=== PATIENT | female | born 1965 | race Caucasian/White ===

== ENCOUNTER 2017-06-11 10:17 | Emergency (ER) | payer SELFPAY ==
[~2017-06-11] VITALS: Ht 170.2 cm; Wt 78.0 kg
[~2017-06-11 10:17] MED LIST: AUGM875T PO
--- NOTE | 2017-06-11 10:43 | PD ---
HPI Chief Complaint: Skin Problem Time Seen by Provider: 10:28 Travel History International Travel<30 days: No Contact w/Intl Traveler<30days: No Traveled to known affect area: No History of Present Illness HPI The patient is a 51-year-old female who presents to the emergency department for pruritic rash. The patient states her rash started in December after she went through a divorce, quit her job, and started smoking once again. The patient has been seen in the emergency department several times per her report, initially in [place]. The patient was initially diagnosed with neurodermatitis. The patient has come back to the emergency department twice where she has been placed on Bactrim, Keflex, and steroids for her rash. The patient states the steroids irritated her stomach, however, did not improve her rash. The rash seems to wax and wane, is present on the hands, the elbows, the scalp, and the lower extremities. The rash is somewhat pruritic. The patient has finished her Bactrim and Keflex without any improvement of her symptoms. The patient was on the 17th 10 day course of steroids 3 weeks ago which did not improve her symptoms. 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 The patient does admit to being under a great of stress and states that her rash did start after her divorce and loss of her job in December. She denies any oropharyngeal involvement, chest pain, shortness breath, or wheezing. [facility] Social History Alcohol Use: No Tobacco Use: No Substance Use: No Allergies-Medications (Allergen,Severity, Reaction): Coded Allergies: No Known Allergies (Unverified , 09/01/15) Reported Meds & Prescriptions Reported Meds & Active Scripts Active Augmentin 875 mg Tab (Amoxicillin & Pot Clavulanate 875 mg Tab) 875 Mg Tab 875 Mg PO Q12 10 Days Review of Systems Except as stated in HPI: all other systems reviewed are Neg HENT: No: Sore Throat Cardiovascular: No: Chest Pain or Discomfort Respiratory: No: Wheezing Gastrointestinal: No: Nausea, Vomiting Skin: Positive Rash, Positive Itching, Positive Dryness Physical Exam Narrative GENERAL: Awake, alert, 51-year-old female who appears her stated age and is in no acute respiratory distress. SKIN: Focused skin assessment warm/dry. Patient has a maculopapular rash on the lower extremities bilaterally. She also has dry skin over the elbows bilaterals as well as a mild excoriation in the webspace between the fingers bilaterally. No visible involvement of the abdomen or back. HEAD: Atraumatic. Normocephalic. EYES: Pupils equal and round. No scleral icterus. No injection or drainage. ENT: No nasal bleeding or discharge. Breath smells of tobacco. NECK: Trachea midline. No JVD. MUSCULOSKELETAL: No obvious deformities. No clubbing. No cyanosis. No edema. NEUROLOGICAL: Awake and alert. No obvious cranial nerve deficits. Motor grossly within normal limits. Normal speech. PSYCHIATRIC: Appropriate mood and affect; insight and judgment normal. MDM Medical Decision Making Medical Screen Exam Complete: Yes Emergency Medical Condition: Yes Medical Record Reviewed: Yes Differential Diagnosis Differential diagnosis includes neurodermatitis, dermatitis, allergic reaction, psoriasis, eczema, atypical fungal infection. Narrative Course The patient's history and physical are consistent with most likely neurodermatitis. The patient has already been on steroids, Bactrim, and Keflex. She is advised to take Benadryl as needed for itching, Selsun Blue for shampoo, and a hypoallergenic soap such as Dove. She is advised to follow-up with dermatology. However, she is advised to try to control her stress and possible see if her symptoms improve. She is stable for outpatient follow-up. Diagnosis Primary Impression: Neurodermatitis Patient Instructions: General Instructions Additional Instructions: Benadryl as needed for itching. Selsun Blue for shampoo. Hypoallergenic soap such as Dove. Follow-up with dermatology. Disposition: DISCHARGE HOME Condition: Stable Durga Navarrete MD Jun 11, 2017 10:43
[2017-06-11 10:47] VITALS: BP 102/71; PULSE 87; RESP 16; TEMP 98.2; O2SAT 98
== END 2017-06-11 11:12 | disposition home or self-care (01) ==
LOC: PHED 10:17
DX: L28.0 Lichen simplex chronicus (principal)
CPT/HCPCS: 99282

== ENCOUNTER 2017-06-27 21:17 | Emergency (ER) | payer SELFPAY ==
[~2017-06-27] VITALS: Ht 170.2 cm; Wt 76.0 kg
[2017-06-27 21:21] VITALS: BP 111/69; PULSE 105; RESP 18; TEMP 98.1; O2SAT 95
[2017-06-27] MEDS ORDERED: CLIN1CAP5 PO (21:46)
[2017-06-27 21:47] VITALS: BP 111/69; PULSE 105; RESP 18; TEMP 98.1; O2SAT 95
--- NOTE | 2017-06-27 22:01 | PD ---
HPI Chief Complaint: Chest Pain Time Seen by Provider: 21:52 Travel History International Travel<30 days: No Contact w/Intl Traveler<30days: No Traveled to known affect area: No History of Present Illness HPI The patient is a 51-year-old female that has a history of eczema neurodermatitis and scratches her skin and gets staph infections. She was seen a few hours ago at [facility] for this and they gave her clindamycin. She comes in today because of chest pain, sharp and easily reproducible by pressing on the chest wall that began at 4:30 PM today. She says she wants something for the pain. She does not have insurance, does not work and smokes 2 packs a day. She does not have a primary care physician. She claims a pain of 7/10. She is allergic to Bactrim. She denies any fever. She denies any urinary tract symptoms. PFSH Past Medical History Integumentary: Yes (RECURRING SKIN RASH) Tetanus Vaccination: > 5 Years Influenza Vaccination: No ?: Not Tubal Ligation: Yes Past Surgical History Abdominal Surgery: Yes (HERNIA REPAIR) Appendectomy: Yes Cholecystectomy: Yes Social History Alcohol Use: Yes (OCCAS) Tobacco Use: Yes (2 PPD) Substance Use: No Allergies-Medications (Allergen,Severity, Reaction): Coded Allergies: Penicillins (Verified Allergy, Intermediate, Hives, 06/27/17) sulfamethoxazole (Verified Allergy, Intermediate, Hives, 06/27/17) trimethoprim (Verified Allergy, Intermediate, Hives, 06/27/17) Reported Meds & Prescriptions Reported Meds & Active Scripts Active Reported Clindamycin (Clindamycin HCl) 150 Mg Cap 150 Mg PO Q8HR Review of Systems Except as stated in HPI: all other systems reviewed are Neg Physical Exam Narrative GENERAL: The patient is alert, oriented 3 in minimal apparent distress with her chest pain. Her vital signs show heart rate of 105 and otherwise normal. SKIN: Focused skin assessment warm/dry. There is an area of cellulitis about 4 cm in diameter on the back. This is apparently where the skin integrity was broken and in the center of the cellulitic area is a black spot. No fluctuance is present here. The skin also shows maculopapular erythematous lesions in the medial legs consistent with eczema and shows areas where the patient has been scratching. HEAD: Atraumatic. Normocephalic. EYES: Pupils equal and round. No scleral icterus. No injection or drainage. ENT: No nasal bleeding or discharge. Mucous membranes pink and moist. NECK: Trachea midline. No JVD. CARDIOVASCULAR: Regular rate and rhythm. No murmur appreciated. RESPIRATORY: No accessory muscle use. Clear to auscultation. Breath sounds equal bilaterally. GASTROINTESTINAL: Abdomen soft, non-tender, nondistended. Hepatic and splenic margins not palpable. MUSCULOSKELETAL: No obvious deformities. No clubbing. No cyanosis. No edema. NEUROLOGICAL: Awake and alert. No obvious cranial nerve deficits. Motor grossly within normal limits. Normal speech. PSYCHIATRIC: Appropriate mood and affect; insight and judgment normal. Data Data Last Documented VS Vital Signs Date Time Temp Pulse Resp B/P (MAP) Pulse Ox O2 Delivery O2 Flow Rate FiO2 06/27/17 22:13 97.8 87 18 98/71 (80) 97 Room Air Orders Orders Electrocardiogram (06/27/17 21:39) Complete Blood Count With Diff (06/27/17 22:02) Comprehensive Metabolic Panel (06/27/17 22:02) Troponin I (06/27/17 22:02) Labs Laboratory Tests Test 06/27/17 22:09 White Blood Count 12.1 TH/MM3 Red Blood Count 4.53 MIL/MM3 Hemoglobin 13.8 GM/DL Hematocrit 40.0 % Mean Corpuscular Volume 88.4 FL Mean Corpuscular Hemoglobin 30.4 PG Mean Corpuscular Hemoglobin Concent 34.4 % Red Cell Distribution Width 12.4 % Platelet Count 307 TH/MM3 Mean Platelet Volume 7.3 FL Neutrophils (%) (Auto) 70.7 % Lymphocytes (%) (Auto) 20.8 % Monocytes (%) (Auto) 6.1 % Eosinophils (%) (Auto) 1.7 % Basophils (%) (Auto) 0.7 % Neutrophils # (Auto) 8.6 TH/MM3 Lymphocytes # (Auto) 2.5 TH/MM3 Monocytes # (Auto) 0.7 TH/MM3 Eosinophils # (Auto) 0.2 TH/MM3 Basophils # (Auto) 0.1 TH/MM3 CBC Comment DIFF FINAL Differential Comment Blood Urea Nitrogen 12 MG/DL Creatinine 0.78 MG/DL Random Glucose 106 MG/DL Total Protein 7.5 GM/DL Albumin 3.6 GM/DL Calcium Level 8.8 MG/DL Alkaline Phosphatase 74 U/L Aspartate Amino Transf (AST/SGOT) 13 U/L Alanine Aminotransferase (ALT/SGPT) 29 U/L Total Bilirubin 0.4 MG/DL Sodium Level 137 MEQ/L Potassium Level 3.5 MEQ/L Chloride Level 105 MEQ/L Carbon Dioxide Level 24.1 MEQ/L Anion Gap 8 MEQ/L Estimat Glomerular Filtration Rate 77 ML/MIN Troponin I LESS THAN 0.02 NG/ML MDM Medical Decision Making Medical Screen Exam Complete: Yes Emergency Medical Condition: Yes Medical Record Reviewed: Yes Interpretation(s) The CBC shows a minimal elevation of the white count at 12,100 but is otherwise unremarkable. The complete metabolic profile shows a GFR of 77 but is otherwise normal. The EKG is normal with a normal sinus rhythm of 88. The cardiac enzymes are normal. Differential Diagnosis Chest wall pain, pleuritic pain, acute coronary syndrome-extremely unlikely, drug seeking behavior, staphylococcal cellulitis, eczema, neurodermatitis Narrative Course The patient has neurodermatitis and scratches lesions until they get infected. These infections appear to be staphylococcal in origin. Impression: Cellulitis with neurodermatitis. She likely has eczema which causes the scratching as well. Diagnosis Primary Impression: Cellulitis Additional Impressions: Neurodermatitis Eczema Additional Instructions: As we discussed, discontinue smoking. Also, the antibiotic is one tablet twice daily for 10 days and the ibuprofen is taken regularly for the first 3 or 4 days , 1 tablet 3 times daily. Try to follow-up with a primary care physician. Med/Other Pt SpecificInfo: Prescription(s) given Scripts Doxycycline Hyclate (Doxycycline Hyclate) 100 Mg Cap 100 MG PO BID for Infection, #20 CAP 0 Refills Prov: Rvai Sanford MD 06/27/17 Ibuprofen (Ibuprofen) 600 Mg Tab 600 MG PO TID for 33 Days, TAB 0 Refills Prov: Ravi Sanford MD 06/27/17 Disposition: 01 DISCHARGE HOME Condition: Stable Ravi Sanford MD Jun 27, 2017 22:01
[2017-06-27 22:13] VITALS: BP 98/71; PULSE 87; RESP 18; TEMP 97.8; O2SAT 97
[2017-06-27 22:17] LABS: AUTOMATED NEUTROPHIL # 8.6 TH/MM3 (1.8-7.7); BASOPHIL # 0.1 TH/MM3 (0-0.2); BASOPHIL % 0.7 % (0.0-2.0); EOSINOPHIL # 0.2 TH/MM3 (0-0.4); EOSINOPHIL % 1.7 % (0.0-4.0); HEMO FLAGS DIFF FINAL; LYMPH % 20.8 % (9.0-44.0); LYMPHOCYTE # 2.5 TH/MM3 (1.0-4.8); MEAN CELL VOLUME 88.4 FL (80.0-100.0); MEAN CORPUSCULAR HEMOGLOBIN 30.4 PG (27.0-34.0); MEAN CORPUSCULAR HGB CONC 34.4 % (32.0-36.0); MONO % 6.1 % (0.0-8.0); NEUT % 70.7 % (16.0-70.0); PLATELET COUNT 307 TH/MM3 (150-450); RED BLOOD COUNT 4.53 MIL/MM3 (4.00-5.30); RED CELL DISTRIBUTION WIDTH 12.4 % (11.6-17.2); WHITE BLOOD COUNT 12.1 TH/MM3 (4.0-11.0)
[2017-06-27 22:24] LABS: CHLORIDE 105 MEQ/L (98-107); POTASSIUM 3.5 MEQ/L (3.5-5.1); SODIUM (NA) 137 MEQ/L (136-145)
[2017-06-27 22:27] LABS: ANION GAP 8 MEQ/L (5-15); BICARBONATE 24.1 MEQ/L (21.0-32.0)
[2017-06-27 22:28] LABS: BLOOD UREA NITROGEN 12 MG/DL (7-18)
[2017-06-27 22:30] LABS: ALT (GPT) 29 U/L (10-53); AST (GOT) 13 U/L (15-37)
[2017-06-27 22:31] LABS: GLOMERULAR FILTRATION RATE 77 ML/MIN (>89)
[2017-06-27 22:32] LABS: TOTAL BILIRUBIN ADULT 0.4 MG/DL (0.2-1.0)
[2017-06-27 22:33] LABS: ALKALINE PHOSPHATASE 74 U/L (45-117)
[2017-06-27] MEDS ORDERED: IBUP-232 PO (22:44)
[2017-06-27] MEDS ORDERED: DOXY100C PO (22:44)
[2017-06-27] MEDS ORDERED: KETOROLAC TROMETHAMINE 60 MG/2 ML (IM) VIAL IVP ONE (22:45)
[2017-06-27] MEDS ORDERED: DOXYCYCLINE HYCLATE 100 MG CAP PO ONE (22:45)
[2017-06-27 23:17] VITALS: BP 101/54
--- NOTE | 2017-06-28 08:24 | EKG ---
Date Performed: 06/27/2017 Time Performed: 21:39:54 PTAGE: 51 years EKG: Sinus rhythm NORMAL ECG NO PREVIOUS TRACING DOCTOR: Darron Pimentel Interpretating Date/Time 06/28/2017 08:23:12
== END 2017-06-27 23:18 | disposition home or self-care (01) ==
LOC: PHED 21:17
DX: L03.90 Cellulitis, unspecified (principal); L28.0 Lichen simplex chronicus; L30.9 Dermatitis, unspecified; Z88.0 Allergy status to penicillin; Z88.2 Allergy status to sulfonamides; F17.210 Nicotine dependence, cigarettes, uncomplicated
CPT/HCPCS: 80053; 84484; 85025; 93005; 96374; 99284; J1885